=== PATIENT | male | born 1975 | race Two or more races ===

== ENCOUNTER 2025-02-19 12:27 | Emergency (ER) | payer MEDICAID, SELFPAY ==
[2025-02-19 12:50] VITALS: BP 148/119; BP 199/148; PULSE 113; RESP 20; TEMP 38.7; O2SAT 97; BMI 30.3
--- NOTE | 2025-02-19 13:06 | PD.EDURI ---
Upper Respiratory Inf. RME/HPI General Chief Complaint: Dental/Oral/Throat Stated Complaint: Fever, sore throat, OLIVAS, body aches Time Seen by Provider: 02/19/25 12:33 Arrival date/time: 02/19/25 12:27 50-year-old male presents to the Emergency Department today for complaints of fever, sore throat, headache, body aches ongoing for the last couple of days patient also reports history of hypertension patient does not take his medication as prescribed Limitations: no limitations Related Data Previous Rx's ?Medication ?Instructions ?Recorded albuterol sulfate 90 mcg/actuation 2 puff inhalation QID PRN 02/19/21 aerosol inhaler (ProAir HFA) shortness of breath or wheezing #18 grams dexamethasone 6 mg tablet 6 mg PO QDAY #10 tabs 02/19/21 (Decadron) ibuprofen 800 mg tablet 800 mg PO TID PRN pain #30 tabs 11/24/23 acetaminophen 500 mg capsule 1,000 mg (2 x 500 mg) PO Q8HR PRN 02/19/25 pain #30 caps benzonatate 100 mg capsule 100 mg PO TID #14 caps 02/19/25 ibuprofen 800 mg tablet 800 mg PO TID PRN pain #30 tabs 02/19/25 Allergies Allergy/AdvReac Type Severity Reaction Status Date / Time No Known Allergies Allergy Verified 02/19/25 12:30 Review of Systems Review of Systems Systems Reviewed: All systems reviewed, normal except as documented Constitutional Constitutional: Reports system reviewed and no additional complaints, except as documented, Denies fever(s) and Denies headache(s) Eyes Eyes: Reports system reviewed and no additional complaints, except as documented and Denies blurry vision ENT Ears, Nose, Mouth, and Throat: Reports system reviewed and no additional complaints, except as documented, Denies headache(s), Denies nasal congestion and Denies nasal discharge Cardiovascular Cardiovascular: Reports system reviewed and no additional complaints, except as documented, Denies chest pain and Denies dyspnea Respiratory Respiratory: Reports system reviewed and no additional complaints, except as documented, Denies chest congestion, Denies cough and Denies dyspnea Gastrointestinal Gastrointestinal: Reports system reviewed and no additional complaints, except as documented and Denies abdominal pain Integumentary/Breasts Skin/Breast: Reports system reviewed and no additional complaints, except as documented and Denies rash Neurologic Neurologic: Reports system reviewed and no additional complaints, except as documented, Reports as per HPI and Denies headache(s) Past Medical History Past Medical History CARDIAC: Positive Cardiac Disorders and Hypertension; Negative Congestive Heart Failure RESPIRATORY: Negative Chronic Obstructive Pulmonary Disease (COPD) GENITOURINARY: Negative Renal Disease ENDOCRINE: Negative Diabetes Mellitus Type 1 or Diabetes Mellitus Type 2 Social History SMOKING STATUS: Never smoker ED Exam General Limitations: Present no limitations General appearance: Present alert and in no apparent distress Head Head exam: Present atraumatic, normocephalic and normal inspection Eye Eye exam: Present normal appearance, PERRL and EOMI; Absent conjunctival injection ENT ENT exam: Present normal exam, normal oropharynx and mucous membranes moist Neck Neck exam: Present normal inspection, full ROM and trachea midline Chest Chest inspection: Present normal inspection and symmetric chest wall rise Respiratory Respiratory exam: Present normal lung sounds bilaterally Cardiovascular Cardiovascular exam: Present regular rate, normal rhythm and normal heart sounds Abdominal Exam Abdominal exam: Present soft and normal bowel sounds; Absent distention, tenderness, guarding, rebound or rigidity Extremities Exam Extremities exam: Present normal inspection and full ROM; Absent tenderness Back Exam Back exam: Present normal inspection and full ROM Neurological Exam Neurological exam: Present alert, oriented X3, CN II-XII intact, normal gait and reflexes normal; Absent motor sensory deficit Psychiatric Psychiatric exam: Present normal affect and normal mood Skin Skin exam: Present warm, dry, intact and normal color; Absent rash Course Quality Measures none Orders Category Date Time Status Bedside COVID-19 Antigen Test NOW Care 02/19/25 13:00 Completed Bedside Influenza A&B Antigen Test NOW Care 02/19/25 13:00 Completed Acetaminophen Tab [Tylenol ES Tab] Med 02/19/25 13:00 Discontinued 1,000 mg PO X1 ONE Vital Signs Vital signs: Vital Signs Temperature 101.7 F H 02/19/25 12:50 Pulse Rate 113 H 02/19/25 12:50 Respiratory Rate 20 02/19/25 12:50 Blood Pressure 199/148 H 02/19/25 12:50 Pulse Oximetry (%) 97 02/19/25 12:50 Oxygen Delivery Method Room Air 02/19/25 12:50 O2 saturation 97% room air with normal limits Upper Respiratory Infection MDM Narrative MDM Narrative:: 50-year-old male presents to the Emergency Department today for complaints of fever, sore throat, headache, body aches ongoing for the last couple of days patient also reports history of hypertension patient does not take his medication as prescribed Patient reports he has his blood pressure medication at home and he will take it when he gets there. Patient given Tylenol for fever Although patient is febrile patient does not appear ill or toxic patient does not appear septic Patient checked for flu and COVID patient came back positive for COVID-19 Symptoms are highly consistent with COVID-19 As patient has no chest pain or shortness of breath no tachypnea or dyspnea patient to be discharged home at this time Patient discharged home in no distress to follow-up with primary care doctor in the next 24 to 48 hours and for any worsening symptoms to return to the ER immediately Patient data External records reviewed:: [facility] previous records Clinical information provided by:: patient Social determinants that could affect healthcare access:: none Patient has the following chronic illnesses:: See history How is presenting disease/condition affected by chronic disease/condition?: exacerbated by Evaluation data The following diagnostics were reviewed and interpreted by me:: lab results Lab and/or radiology exams considered but not ordered:: Lab work obtained Interpretation Summary: Reviewed by me Medications / Prescriptions Medications or Prescriptions considered but not ordered:: Given Medication administrations:: Medication Administration History Discontinued Medications Acetaminophen (Acetaminophen 500 Mg Tablet) 1,000 mg PO X1 ONE Stop: 02/19/25 13:01 Last Admin: 02/19/25 13:15 Dose: 1,000 mg Documented By: Given Consultations Consultation(s) initiated? (list below): No Diagnosis Upper Respiratory Differential Diagnosis: upper respiratory infection, sinusitis, viral infection and influenza Most likely diagnosis given after review of the tests above:: COVID-19 Admission Indicated Admission indicated?: not indicated Admission Request Was there a request for admission?: No Disposition Plan Disposition Plan: Discharge Discharge Attestation Discharge Attestation: The patient and all family members were given an opportunity to ask questions and understood the discharge instructions. Discharge instructions specifically effects, indications for sooner follow up or return to the emergency department, and the expected course of current diagnosis. Patient condition: Stable Discharge Plan Plan Patient Disposition: HOME (Self Care) Discharge Disposition comment: Stable Prescriptions/Referrals Prescriptions/Med Rec: New acetaminophen 500 mg capsule 1,000 mg PO Q8HR PRN (Reason: pain) Qty: 30 0RF ibuprofen 800 mg tablet 800 mg PO TID PRN (Reason: pain) Qty: 30 0RF benzonatate 100 mg capsule 100 mg PO TID Qty: 14 0RF No Action dexamethasone [Decadron] 6 mg tablet 6 mg PO QDAY Qty: 10 0RF albuterol sulfate [ProAir HFA] 90 mcg/actuation HFA aerosol inhaler 2 puff inhalation QID PRN (Reason: shortness of breath or wheezing) Qty: 18 0RF ibuprofen 800 mg tablet 800 mg PO TID PRN (Reason: pain) Qty: 30 0RF Problem List Clinical Impression: COVID-19, Fever, Body aches, Noncompliance with medications Patient/Caregiver Discharge Instructions Education Materials: COVID-19 Home Care Additional Instructions: Please follow up with your primary care doctor in the next 24-48hrs for any worsening symptoms return here immediately Is extremely important you take your blood pressure medication on a daily basis Print Language: Irish Stand Alone Forms: Desirae Award Info., Patient Portal Info Letter PA/[employer] SUPERVIS[employer] Supervising Physician PA/[employer]PER[employer] Supervising Physician: Dr. [email or web address]
[2025-02-19 13:15] VITALS: TEMP 38.7
[2025-02-19] MEDS: ACETAMINOPHEN 500 MG TABLET 1000 MG PO (13:15)
[2025-02-19 13:21] VITALS: BP 184/98
== END 2025-02-19 13:30 | disposition home or self-care (01) ==
LOC: SERX 13:46
PROVIDERS: Emergency Provider Family Medicine
DX: U07.1 COVID-19 (principal); I10 Essential (primary) hypertension; Z91.148 Patient's other noncompliance with medication regimen for other reason
CPT/HCPCS: 87400; 87811; 99283; A9270